=== PATIENT | female | born 1940 | race Caucasian/White ===

== ENCOUNTER → 2016-09-09 | Outpatient (CLI) | payer MEDICARE, OTHER ==
[~2016-09-09] MED LIST: AVALIDE 300-12.1 TAB; BACTRIM DS TABL1 TA1 PO; CALCIUM + VITAM1 TAB PO; COUMADIN PO; COUMADIN1 MG PO; COUMADIN2.5 MG PO; DITROPAN X10 MG/BOTT PO; GABAPENTIN300 M2 PO; K-DUR20 ME1; LASIX; LEVOTHYROXINE25 MC1 PO; LISINOPRIL-HCTZ1 T15 PO; LISINOPRIL30 MG PO; LOTREL 5/20 MG1 CAP; METOPROLOL TAR100 MG PO; MOBIC; NEXIUM PO; NORVASC10 MG PO; OXYCODON HCL-1 UDTAB PO; OXYCODONE15 M1 PO; PREMARIN; PROTONIX; SERTRALINE HCL50 MG PO; SIMVASTATIN40 MG PO; STOOL SOFTENER1 EAC1 PO; TOPROL XL; ULTRACET TABLET1 TAB; VITAMIN D1000 UNIT PO; ZOCOR; ZOLOFT
--- NOTE | ~2016-09-09 | CT57 ---
[facility] A Service of [facility] & [facility] RADIOLOGY TEXT RESULTS PATIENT: RUBY LEYVA LOCATION: [facility] : 44 UNIT #: [id number] AGE: [address]: Shahriar Bolton MD SEX: F ORDER DR: [id number] [facility] [address] [place], [place] [address] [id number] O MR#: [id number] [facility] #: [id number] NAME: RUBY LEYVA. : 1940 SEX: F STUDY DATE/TIME: 09/09/2016 13:49 UNIT: [facility] ROOM: STUDY DESCRIPTION: CT Chest Wo Cont Attending Physician: Shahriar Bolton M.D. Referring Physician: Shahriar Bolton M.D. Ordering Physician: Shahriar Bolton M.D. Primary Care Physician: Jimmy Donovan M.D. MEDICAL IMAGING REPORT This report is preliminary unless electronic signature is present EXAM CT chest without contrast INDICATIONS Shortness of breath for 3 years. Patient also apparently had an abnormal chest radiograph at her doctors office. No report is available for that study. TECHNIQUE Axial CT images were obtained from the thoracic inlet through the dome of the diaphragm. No intravenous contrast material was administered. This CT exam was performed with one or more of the following radiation dose reduction techniques: automatic exposure control, adjustment of mA and/or kV according to patient size, and iterative reconstruction. FINDINGS Background emphysematous changes are seen. Patient has scattered tiny noncalcified pulmonary nodules seen throughout both lungs range in size from probably about 2-3 mm. There is some areas of parenchymal scarring identified within both lungs. The thyroid gland is heterogeneous with at least 1 discrete nodule seen measuring up to about 1.1 cm in size. Trachea and esophagus appear unremarkable. There is no pleural or pericardial effusion. Patient is status post mitral valve replacement. There are coronary artery calcifications. Images through the upper abdomen demonstrate cholelithiasis. No other acute abnormality is seen. Patient does have a prominent precarinal lymph node, which could certainly be reactive. IMPRESSION 1. This patient has punctate scattered noncalcified pulmonary nodules probably ranged in size from about 2-3 mm identified within both lungs. I would suggest a followup CT in 12 months to document stability. [facility] A Service of [facility] RADIOLOGY TEXT RESULTS PATIENT: RUBY LEYVA LOCATION: [facility] : 44 UNIT #: [id number] AGE: [address]: Shahriar Bolton MD SEX: F ORDER DR: 2. Prominent precarinal lymph node certainly could be reactive. Attention to it on a followup study is suggested. 3. Incidentally noted thyroid nodule measuring up to 1.1 cm. Overall the thyroid gland is heterogeneous, and can be better assessed with dedicated thyroid ultrasound. 4. Cholelithiasis. 5. Please see the body of the report for any other additional incidental findings. Dictated by... Candy Beltran M.D. THIS IS AN ELECTRONICALLY VERIFIED REPORT Candy Beltran M.D. at 09/09/2016 4:42 PM TIO/melecio TD: 09/09/2016 16:29 JOB #: [id number] MEDICAL IMAGING REPORT Page 1 of 1 COPY
== END | disposition home or self-care (01) ==
LOC: CCAT 13:15
DX: R93.8 Abnormal findings on diagnostic imaging of other specified body structures (principal); R91.8 Other nonspecific abnormal finding of lung field; K80.20 Calculus of gallbladder without cholecystitis without obstruction
CPT/HCPCS: 71250

== ENCOUNTER → 2016-09-15 | Outpatient (CLI) | payer MEDICARE, OTHER ==
--- NOTE | ~2016-09-15 | NM22 ---
[facility] A Service of [facility] & [facility] RADIOLOGY TEXT RESULTS PATIENT: RUBY LEYVA LOCATION: [facility] : 44 UNIT #: [id number] AGE: [address]: Ramu Butler MD SEX: F ORDER DR: [id number] [facility] [address] [place], [place] [address] [id number] O MR#: [id number] Acc #: [id number] NAME: RUBY LEYVA. : 1940 SEX: F STUDY DATE/TIME: 09/15/2016 10:42 UNIT: [facility] ROOM: STUDY DESCRIPTION: TIM Hepatobiliary W GB Pharm Attending Physician: Ramu Butler M.D. Referring Physician: Ramu Butler M.D. Ordering Physician: Ramu Butler M.D. Primary Care Physician: Jimmy Donovan M.D. MEDICAL IMAGING REPORT This report is preliminary unless electronic signature is present EXAM HIDA scan with Kinevac CCK, 09/15/16. HISTORY Epigastric abdominal pain, right upper quadrant abdominal pain and belching with abdominal bloating, gastritis. Patient alternates between constipation and diarrhea. Nausea and vomiting with episodes. Symptoms for 1 year. FINDINGS The patient received an intravenous injection of 5.54 mCi of technetium 99m tagged Choletec for hepatobiliary imaging. One hour following the injection of the radiopharmaceutical, the patient received an intravenous injection of 1.8 mcg of Kinevac. There is homogeneous distribution of the radiotracer throughout the liver. Gallbladder activity was seen by 60 minutes postinjection of the radiopharmaceutical. Following Kinevac injection, the gallbladder ejection fraction was 94.9% (normal is greater than 30%). IMPRESSION Normal HIDA scan with gallbladder ejection fraction of 94.9%. Dictated by... Nic Boateng M.D. THIS IS AN ELECTRONICALLY VERIFIED REPORT Nic Boateng M.D. at 09/16/2016 6:17 AM CAR/mohan TD: 09/15/2016 15:07 JOB #: [id number] [facility] A Service of [facility] & [facility] RADIOLOGY TEXT RESULTS PATIENT: RUBY LEYVA [id number] 44 UNIT #: [id number] AGE: [address]: Ramu Butler MD SEX: F ORDER DR: MEDICAL IMAGING REPORT Page 1 of 1 COPY
== END | disposition home or self-care (01) ==
LOC: CNUC 09:20
DX: R10.13 Epigastric pain (principal)
CPT/HCPCS: 78227; A9537; J2805